=== PATIENT | female | born 1975 | race Caucasian/White ===

== ENCOUNTER 2017-09-20 08:45 | Outpatient (CLI) | payer OTHER ==
--- NOTE | 2017-09-20 09:29 | RAD ---
PA AND LATERAL VIEWS CHEST: Date: 09/20/17 HISTORY: Right-sided chest pain. FINDINGS: The heart size is normal. The lungs are expanded without focal areas of consolidation, pneumothorax, or pleural effusions. There are mild degenerative changes in the spine. IMPRESSION: No radiographic evidence of acute cardiopulmonary process. POS: [facility]
== END 2017-09-20 08:46 | disposition home or self-care (01) ==
LOC: TBSIIMAG 08:45
PROVIDERS: ATTEND Family Medicine
DX: R07.2 Precordial pain (principal)
CPT/HCPCS: 71046